=== PATIENT | female | born 1940 ===

== ENCOUNTER 2020-01-06 22:12 | Inpatient (IN) | payer MEDICARE, OTHER ==
[2020-01-06] MEDS ORDERED: Aspirin Chewable 81 MG TAB ONE (22:40)
[2020-01-06] MEDS ORDERED: Labetalol HCl 100 MG/20 ML VIAL ONE (22:49)
[2020-01-07] MEDS ORDERED: hydrALAZINE 20 MG/ML VIAL SLOW IVP PRN (00:16)
[2020-01-07] MEDS ORDERED: Acetaminophen 325 MG TAB PO PRN (00:16)
[2020-01-07] MEDS ORDERED: HumaLOG 300 UNITS/3 ML VIAL SC PRN ×2 (00:16)
[2020-01-07] MEDS ORDERED: Dextrose 5% in Water 1,000 ML IV PRN (00:16)
[2020-01-07] MEDS ORDERED: Dextrose 50% Abboject 50 ML SYRINGE SLOW IVP PRN (00:16)
--- NOTE | 2020-01-07 00:35 | HP ---
PRIMARY CARE PHYSICIAN: [id number]. CHIEF COMPLAINT: Right-sided tingling. HISTORY OF PRESENT ILLNESS: The patient is a very pleasant 79-year-old female visiting from [place], with past medical history significant for hypertension and diabetes. She presents to the ER today for right-sided tingling and weakness. She states that she was at her daughter's house making meatloaf when she notes that her right hand was tingling and felt a little weaker than her left hand. She also noticed some heaviness in her right leg when walking. She went and laid down and the symptoms resolved. However, when she got back up, they began again and also had some right-sided facial numbness. The ER doctor endorsed right-sided facial droop. The patient took an aspirin at home and EMS gave her an inch of nitro paste. Patient denies any chest pain, shortness of breath, change in bowel or bladder, contact with sick persons, any fever, or any changes in medications recently. Patient does state she has been compliant with her medications. Her blood sugars have been running in the low 100s. She does have a history of her blood pressure becoming high as high as 200 systolically that she has had to go and seek treatment for before. Patient does state they drove here from [place] approximately three weeks ago, but they did have frequent stops along the way due to her leg cramps. She was initially seen in the [facility], where they performed a brain CT and a CT [place] angio with contrast and EKG with lab work. She was then transferred to this ER in [place], where she was given labetalol 10 mg and aspirin 243 mg. She had already taken a baby aspirin at home. PAST MEDICAL HISTORY: Hypertension, diabetes type 2. PAST SURGICAL HISTORY: Cholecystectomy, appendectomy, hysterectomy, tubal ligation, removal of a benign lipoma of her neck. ALLERGIES: NO KNOWN DRUG ALLERGIES. MEDICATIONS: Patient states she takes lisinopril and clonidine at home. There is also another medication that she takes for blood pressure every other day, but she does not remember the name of it. The patient takes unknown insulin type of 30 units in the morning and 15 units at night. SOCIAL HISTORY: Patient lives at home in [place] with her . Denies alcohol, drug, or smoking history. FAMILY HISTORY: Noncontributory. REVIEW OF SYSTEMS: All other review of systems negative unless noted in the HPI. PHYSICAL EXAMINATION: VITAL SIGNS: 206/95 blood pressure, pulse 83, respiratory rate 18, temperature 98.7 orally, no pain, and O2 saturation 95% on room air. GENERAL: No acute distress. Alert, oriented to person, place, and time. HEENT: Head; atraumatic, normocephalic. Eyes, PERRLA. Extraocular muscles intact. No nystagmus. RESPIRATORY: Clear to auscultation bilaterally. No rhonchi, no wheezes, no rales. CARDIOVASCULAR: Regular rate and rhythm. No rubs, no gallops, no murmurs. ABDOMEN: Nontender. No distention. No guarding. No rigidity. EXTREMITIES: Upper and lower extremity strength 4/5 on the right side, upper and lower. Range of motion normal. NEUROLOGIC: Right-sided numbness to face, arm, and leg. Decreased strength in right side. Decreased application software developer in right side. Cerebellar intact. SKIN: Warm and dry and intact. Normal behavior. IMAGING DATA: EKG shows normal sinus rhythm, right bundle-branch block, 87 beats per minute. Brain CT showed no evidence of acute infarct. CT of [place] angio with contrast shows unremarkable. CTA of the head, no evidence of proximal MCA stenosis or occlusion. CTA of the neck showed atherosclerotic changes in both lobes without significant stenosis in either proximal ICA, tortuosity and kinking of both ICAs above the wall which does result in moderate stenosis bilaterally and a dominant nodule in the left lobe of thyroid, recommended to have elective thyroid ultrasound evaluation. White blood cells 12.4, hemoglobin 11.9, and hematocrit 38.5. Sodium 142, potassium 4.2, chloride 108, carbon dioxide 20, BUN 32, creatinine 1.29, GFR 40, and glucose 92. Troponin 0.019. IMPRESSION AND PLAN: Transient ischemic attack versus cerebrovascular accident. We will obtain a Neuro consult in the morning along with an MRI. Fasting lipid panel and hemoglobin A1c to be drawn in a.m. along with repeat BMP and CBC. We will monitor Accu-Cheks before meals and at bedtime and cover with a sliding scale insulin. We will restart the patient on her home medications for her diabetes. For her hypertension, we will slowly bring her blood pressure down and allow for permissive hypertension this evening. Patient states that she was told by her MD that her kidneys look wonderful so she appears to have an LEANDER with this admission, will gently hydrate with IVF and reassess levels in am. Patient was educated over this and made aware of the plan. VTE and GI prophylaxis to be in place. Patient wishes to be a full code. Her surrogate decision maker is her , Abner and also her daughter, Brandy. Patient has been discussed with Dr. Carlos. Job ID: [id number] MTDD
[2020-01-07 01:55] VITALS: BMI 31.6
[2020-01-07] MEDS: Sodium Chloride 0.9% 1,000 ML IV SCH (02:34)
[2020-01-07 05:08] LABS: #Basophils 0.1 thou/uL (0.0-0.2); #Eosinphils 0.3 thou/uL (0.0-0.7); #Lymphocytes 4.3 thou/uL (1.20-3.40); #Monocytes 0.9 thou/uL (0.11-0.59); #Neutrophils 5.3 thou/uL (1.40-6.50); %Basophils 0.9 % (0.0-1.0); %Eosinophils 2.9 % (0.0-10.0); %Lymphocytes 39.1 % (21.0-51.0); %Monocytes 8.6 % (0.0-10.0); %Neutrophils 48.4 % (42.0-75.0); Hemoglobin 10.8 g/dL (12.0-16.0); Mean Corpuscular HGB CONC 33.7 g/dL (32.0-36.0); Mean Corpuscular Hemoglobin 30.3 pg (27.0-31.0); Mean Corpuscular Volume 89.8 fL (78.0-98.0); Mean Platelet Volume 7.4 fL (7.4-10.4); Platelet Count 282 thou/uL (130-400); RBC Distribution Width 12.8 % (11.5-14.5); Red Blood Cell (RBC) Count 3.57 mill/uL (4.20-5.40); White Blood Cell (WBC) Count 10.9 thou/uL (4.8-10.8)
[2020-01-07 05:15] LABS: Hemoglobin A1c 5.5 % (4.0-6.0)
[2020-01-07 05:28] LABS: Anion Gap 14 mmol/L (10-20); BUN (Urea Nitrogen) 31 mg/dL (9.8-20.1); Calc. Creatinine Clearance 55 mL/min (70-130); Calcium 9.2 mg/dL (7.8-10.44); Carbon Dioxide 21 mmol/L (23-31); Cardiac Risk 7.3 (Less than 4.5); Chloride 109 mmol/L (98-107); Cholesterol 263 mg/dl (< 200 Desired); Estimated GFR-MDRD 48; Glucose 126 mg/dL (83-110); HDL Cholesterol 36 mg/dL (>60 Neg Risk); LDL Cholesterol, Calculated 165 mg/dL; Magnesium 1.5 mg/dL (1.6-2.6); Potassium 3.7 mmol/L (3.5-5.1); Sodium 140 mmol/L (136-145); Triglycerides 310 mg/dL (Less than 150)
[2020-01-07] MEDS ORDERED: FLU VACC QS2020-21(65YR UP)/PF 240 MCG/0.7 ML SYRINGE IM ONE (09:00)
[2020-01-07] MEDS ORDERED: Magnesium 2 GM/50 ML 2 GM in Premix Bag 1 BAG IVPB SCH (10:00)
[2020-01-07] MEDS ORDERED: Lorazepam 2 MG/ML VIAL SLOW IVP PRN (10:17)
[2020-01-07] MEDS: Enoxaparin Sodium 40 MG/0.4 ML SYRINGE SC SCH (10:25)
[2020-01-07] MEDS: Aspirin 81 mg Enteric Coated Tablet PO SCH (10:25)
[2020-01-07] MEDS ORDERED: Lorazepam 2 MG/ML VIAL SLOW IVP SCH (11:45)
--- NOTE | 2020-01-07 13:01 | MRI ---
EXAM: MRI Brain WO Con PROVIDED CLINICAL HISTORY: Generalized weakness. TIA. History on admission was right-sided weakness involving arm and leg. COMPARISON: CT head on 01/06/2020 FINDINGS: There is prominent motion artifact especially on the T2-weighted sequence, but this examination is di agnostic. There is a focal area of restricted diffusion measuring 9 mm in the left pelvis compatible with an ac atka infarction. No additional areas of restricted diffusion are seen to suggest additional areas of acute infarction. There are scattered punctate areas of increased FLAIR and T2-weighted signal intensity seen in the pe riventricular and subcortical white matter as well as in the left aspect of the anibal which are nonspecific but likely reflective of chronic small vessel ischemic changes. The septum pellucidum and third ventricle are in the midline. Mild cerebral and cerebellar volume los s is present. The ventricular system is normal in size, shape, and position for the degree of sulcal atrophy. The grayling lenses are absent. There is limited evaluation of the flow voids of the large intracranial vessels at the base of brain due to prominent motion. However, there is absence of the distal left vertebral artery flow-void, but the left vertebral artery was noted to terminate in PICA on the recent CT angiogram. IMPRESSION: Acute lacunar infarction left thalamus. Above findings discussed with [facility] nurse on the hospital floor on 01/07/2020 at 1258 hours.
[2020-01-07 13:27] LABS: SARS-CoV-2 MS2 Positive; SARS-CoV-2 N Gene Negative; SARS-CoV-2 S Gene Negative; SARS-CoV-2 by NAA Not Detected (NotDetected); SARS-CoV-2 orf1ab Negative
--- NOTE | 2020-01-07 13:49 | CON ---
NEUROLOGY CONSULTATION DATE OF CONSULTATION: 01/07/2020 REASON FOR CONSULTATION: Right-sided weakness and paresthesias, rule out stroke. HISTORY OF PRESENT ILLNESS: Ms. Jordana Gimenez is a 79-year-old female with medical history significant for hypertension and diabetes, who has been visiting from [place], presented to the emergency room yesterday with acute onset tingling and paresthesias of the right upper and lower extremity. Per patient, she felt her right hand was tingling and it felt heavy, and she was dragging her right leg while walking, where she went and laid down and her symptoms resolved; however, when she woke up, the symptoms began again and now with associated with right facial numbness. She was brought to the emergency room for further evaluation. The patient took aspirin at home. The patient denies nausea, vomiting, headache, chest pain, abdominal pain, slurred speech, or problems with swallowing associated with the episode. In the emergency room, head CT was done. She initially presented to [facility] where the head CT was done, and a CT of the [place], which was essentially negative. She was transferred to [facility] for further evaluation and given aspirin. REVIEW OF SYSTEMS: All 14 systems were reviewed and were negative except the pertinent positives and negatives mentioned in the HPI. PAST MEDICAL HISTORY: Hypertension and diabetes. PAST SURGICAL HISTORY: Cholecystectomy, appendectomy, hysterectomy, and tubal ligation. ALLERGIES: NO KNOWN DRUG ALLERGIES. MEDICATIONS: 1. Lisinopril. 2. Clonidine. 3. Insulin. SOCIAL HISTORY: The patient lives at [place] with her . Denies alcohol, smoking, or illegal drug use. PHYSICAL EXAMINATION: VITAL SIGNS: Blood pressure of 200/90, pulse 80, and respiratory rate 18. CVS: Regular rate and rhythm. CHEST: Clear. ABDOMEN: Soft. NECK: Supple. NEUROLOGIC: Mental status, the patient is alert and oriented to person, place, and time. Speech is clear. Recent and remote memory intact. Motor, muscle tone and bulk are normal. Strength; 3/5 in the right upper extremity, 4/5 in the right lower extremity, 5/5 in the left upper and lower extremities. Sensory, decreased sensation to light touch and pinprick in the right upper and lower extremities. Cranial nerves 2 through 12 intact, except 5. Decreased sensation to light touch in the V1, V2, V3 distribution. Cerebellar intact. Gait deferred due to the patient's safety reason. DATA REVIEWED: I reviewed the head CT scan which was negative for acute intracranial process. CTA of the [place] was unremarkable. CTA of the neck showed atherosclerotic changes without significant stenosis. ASSESSMENT AND PLAN: Ms. Jordana Gimenez was consulted for acute onset focal tingling and paresthesias and numbness and weakness on the right side of the body. Most likely stroke with involvement of the left basal ganglia. MRI of the brain to rule out acute intracranial process. 2D echo to evaluate for left ventricular ejection fraction. Telemetry to evaluate for arrhythmias. Neuro checks every 4 hours. Start aspirin and high-intensity statin for secondary stroke prevention. Check hemoglobin A1c, fasting lipid panel, and TSH. Continue home medications. Permissive control of blood pressure at this time. Strict control of blood glucose. PT/OT/Speech. DVT prophylaxis. Continue medical management per primary team. We will continue to follow. Thank you for the consult. Job ID: [id number] MTDD
[2020-01-07] MEDS: Labetalol HCl 100 MG/20 ML VIAL SLOW IVP PRN ×3 (16:23→22:05)
--- NOTE | 2020-01-07 16:54 | PDOC.BPN ---
- Brief Progress Note Encounter Date: 01/07/20 Pt was seen earlier this morning awaiting an MRI result. MRI has now been resulted and pt is noted to have an acute left thalamic CVA. Neuro has seen pt and rec med mgt and permissive HTN. Echo results are pending Exam: Stable. Right side weakness is noted. Labs/ Radiology: Noted. A/P Cont current mgt Await PT/ OT eval and recs. F/u with Echo results. Plan as oulined by Neuro. F/u with further Neuros recs.
[2020-01-07 17:11] LABS: #Basophils 0.1 thou/uL (0.0-0.2); #Eosinphils 0.3 thou/uL (0.0-0.7); #Lymphocytes 4.5 thou/uL (1.20-3.40); #Monocytes 0.8 thou/uL (0.11-0.59); #Neutrophils 3.9 thou/uL (1.40-6.50); %Basophils 1.4 % (0.0-1.0); %Eosinophils 3.1 % (0.0-10.0); %Lymphocytes 46.8 % (21.0-51.0); %Monocytes 8.2 % (0.0-10.0); %Neutrophils 40.6 % (42.0-75.0); Hemoglobin 11.1 g/dL (12.0-16.0); Mean Corpuscular HGB CONC 32.3 g/dL (32.0-36.0); Mean Corpuscular Hemoglobin 28.7 pg (27.0-31.0); Mean Platelet Volume 7.4 fL (7.4-10.4); Platelet Count 289 thou/uL (130-400); RBC Distribution Width 12.7 % (11.5-14.5); Red Blood Cell (RBC) Count 3.88 mill/uL (4.20-5.40); White Blood Cell (WBC) Count 9.6 thou/uL (4.8-10.8)
[2020-01-07] MEDS: Atorvastatin Calcium 40 MG TAB PO SCH (21:06)
[2020-01-07] MEDS ORDERED: cloNIDine 0.1 MG TAB PO SCH (23:15)
[2020-01-08] MEDS: Sodium Chloride 0.9% 1,000 ML IV SCH ×2 (00:29→12:53)
[2020-01-08] MEDS: Labetalol HCl 100 MG/20 ML VIAL SLOW IVP PRN ×4 (02:10→22:18)
[2020-01-08 05:07] LABS: #Basophils 0.1 thou/uL (0.0-0.2); #Eosinphils 0.4 thou/uL (0.0-0.7); #Lymphocytes 4.1 thou/uL (1.20-3.40); #Monocytes 0.8 thou/uL (0.11-0.59); #Neutrophils 4.5 thou/uL (1.40-6.50); %Basophils 1.2 % (0.0-1.0); %Lymphocytes 41.1 % (21.0-51.0); %Monocytes 8.3 % (0.0-10.0); %Neutrophils 45.4 % (42.0-75.0); Hemoglobin 10.5 g/dL (12.0-16.0); Mean Corpuscular HGB CONC 33.2 g/dL (32.0-36.0); Mean Corpuscular Hemoglobin 29.8 pg (27.0-31.0); Mean Corpuscular Volume 89.8 fL (78.0-98.0); Mean Platelet Volume 7.9 fL (7.4-10.4); Platelet Count 276 thou/uL (130-400); RBC Distribution Width 12.7 % (11.5-14.5); Red Blood Cell (RBC) Count 3.52 mill/uL (4.20-5.40); White Blood Cell (WBC) Count 9.9 thou/uL (4.8-10.8)
[2020-01-08 05:31] LABS: Anion Gap 14 mmol/L (10-20); BUN (Urea Nitrogen) 26 mg/dL (9.8-20.1); Calc. Creatinine Clearance 51 mL/min (70-130); Calcium 8.8 mg/dL (7.8-10.44); Carbon Dioxide 21 mmol/L (23-31); Chloride 108 mmol/L (98-107); Estimated GFR-MDRD 44; Glucose 126 mg/dL (83-110); Potassium 3.9 mmol/L (3.5-5.1); Sodium 139 mmol/L (136-145)
--- NOTE | 2020-01-08 08:35 | PDOC.HOSPP ---
- Subjective Encounter Date: 01/08/20 Encounter Time: 08:23 Subjective: alert, pleasant, cooperative - Objective Vital Signs & Weight: Vital Signs (12 hours) Temp Pulse Resp BP BP Pulse Ox 01/08/20 08:00 97.8 F 79 23 H 201/87 H 95 01/08/20 06:23 80 190/80 H 01/08/20 04:34 183/70 H 01/08/20 04:00 98.1 F 80 18 203/87 H 93 L 01/08/20 03:45 80 190/65 H 01/08/20 02:10 80 220/80 H 01/08/20 00:25 85 200/80 H 01/07/20 23:56 98.0 F 80 20 228/80 H 91 L 01/07/20 23:32 221/98 H 01/07/20 22:05 82 221/98 H Weight Weight 178 lb 9.6 oz I&O: 01/07/20 01/08/20 01/09/20 06:59 06:59 06:59 Intake Total 1276 Balance 1276 Result Diagrams: 01/08/20 04:22 01/08/20 04:22 Additional Labs: Accuchecks 01/08/20 01/07/20 01/07/20 05:39 21:14 17:06 POC Glucose 124 H 116 H 118 H Hospitalist ROS - Medication Medications: Active Medications Generic Name Dose Route Start Last Admin Trade Name Freq PRN Reason Stop Dose Admin Aspirin 81 mg 01/07/20 09:00 01/07/20 10:25 Aspirin 81 Mg Enteric Coated Tablet PO 81 mg DAILY TRICIA Administration Atorvastatin Calcium 40 mg 01/07/20 21:00 01/07/20 21:06 Atorvastatin Calcium 40 Mg Tab PO 40 mg HS TRICIA Administration Enoxaparin Sodium 40 mg 01/07/20 09:00 01/07/20 10:25 Enoxaparin Sodium 40 Mg/0.4 Ml Syringe SC 40 mg 0900 TRICIA Administration Sodium Chloride 1,000 mls @ 75 mls/hr 01/07/20 00:30 01/08/20 00:29 Normal Saline 0.9% IV 1,000 mls .[id number] TRICIA Administration Labetalol HCl 20 mg 01/07/20 22:08 01/08/20 06:23 Labetalol Hcl 100 Mg/20 Ml Vial SLOW IVP 20 mg Q1H PRN Administration SBP Greater Than 180 Pantoprazole Sodium 40 mg 01/07/20 09:00 01/07/20 10:25 Pantoprazole 40 Mg Tab PO 40 mg DAILY TRICIA Administration - Exam General Appearance: awake alert Neck: no JVD Heart: RRR, no murmur Respiratory: CTAB Gastrointestinal: soft, non-distended, normal bowel sounds Extremities: no edema Neurological: cranial nerve grossly intact Neurological - other findings: R spasyic hemipleegia Hosp A/P (1) CVA (cerebral vascular accident) Code(s): I63.9 - CEREBRAL INFARCTION, UNSPECIFIED Status: Acute Qualifiers: CVA mechanism: thrombosis Precerebral and cerebral artery: posterior cerebral artery Laterality of affected vessel: left Qualified Code(s): I63.332 - Cerebral infarction due to thrombosis of left posterior cerebral artery (2) Hemiplegia affecting dominant side Code(s): G81.90 - HEMIPLEGIA, UNSPECIFIED AFFECTING UNSPECIFIED SIDE Status: Acute (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
[2020-01-08] MEDS: Enoxaparin Sodium 40 MG/0.4 ML SYRINGE SC SCH (08:43)
[2020-01-08] MEDS: Aspirin 81 mg Enteric Coated Tablet PO SCH (08:43)
[2020-01-08] MEDS ORDERED: Non-Formulary Item 1 EACH (Omeprazole [Omeprazole] 40 MG Capsule.Dr) PO SCH (09:00)
[2020-01-08] MEDS ORDERED: Non-Formulary Item 1 EACH (Insulin Nph Hum/Reg Insulin Hm [Novolin 70-30 Flexpen] 100 UNI SC SCH ×2 (09:00→21:00)
[2020-01-08] MEDS ORDERED: Non-Formulary Item 1 EACH (Lisinopril [Lisinopril] 40 MG Tablet) PO SCH (09:00)
[2020-01-08] MEDS: Lisinopril 20 MG TAB PO SCH (10:32)
[2020-01-08] MEDS: glipiZIDE 5 MG TAB PO SCH ×2 (10:32→22:08)
[2020-01-08] MEDS: NPH, Human Insulin Isophane 300 UNIT/3 ML VIAL SC SCH (10:36)
[2020-01-08] MEDS: Primidone 50 MG TAB PO SCH (12:53)
--- NOTE | 2020-01-08 13:21 | PDOC.NEUPN ---
- Subjective Encounter Date: 01/08/20 Subjective: Patient denies any new complaints overnight. - Objective Vital Signs & Weight: Vital Signs (12 hours) Temp Pulse Resp BP BP Pulse Ox 01/08/20 12:00 97.9 F 76 13 200/87 H 93 L 01/08/20 10:32 208/78 H 01/08/20 08:00 97.8 F 79 23 H 201/87 H 95 01/08/20 06:23 80 190/80 H 01/08/20 04:34 183/70 H 01/08/20 04:00 98.1 F 80 18 203/87 H 93 L 01/08/20 03:45 80 190/65 H 01/08/20 02:10 80 220/80 H Weight Weight 178 lb 9.6 oz I&O: 01/07/20 01/08/20 01/09/20 06:59 06:59 06:59 Intake Total 1276 Balance 1276 Result Diagrams: 01/08/20 04:22 01/08/20 04:22 Additional Labs: Accuchecks 01/08/20 01/08/20 01/07/20 11:16 05:39 21:14 POC Glucose 156 H 124 H 116 H 01/07/20 17:06 POC Glucose 118 H Radiology Reviewed by me: Yes EKG Reviewed by me: Yes ROS - Review of Systems Constitutional: denies: fever, chills, sweats, weakness, malaise, other Eyes: denies: pain, vision change, conjunctivae inflammation, eyelid inflammation, redness, other ENT: denies: ear pain, ear discharge, nose pain, nose discharge, nose congestion, mouth pain, mouth swelling, throat pain, throat swelling, other Respiratory: denies: cough, dry, shortness of breath, hemoptysis, SOB with excertion, pleuritic pain, sputum, wheezing, other Gastrointestinal: denies: nausea, vomiting, abdominal pain, diarrhea, constipation, melena, hematochezia, other Genitourinary: denies: dysuria, frequency, incontinence, hematuria, retention, other Musculoskeletal: denies: neck pain, shoulder pain, arm pain, back pain, hand pain, leg pain, foot pain, other Skin: denies: rash, lesions, balaji, bruising, other Neurological: reports: weakness, numbness, incoordination. denies: change in speech, confusion, seizures, other - Medication Medications: Active Medications Generic Name Dose Route Start Last Admin Trade Name Freq PRN Reason Stop Dose Admin Aspirin 81 mg 01/07/20 09:00 01/08/20 08:43 Aspirin 81 Mg Enteric Coated Tablet PO 81 mg DAILY TRICIA Administration Atorvastatin Calcium 40 mg 01/07/20 21:00 01/07/20 21:06 Atorvastatin Calcium 40 Mg Tab PO 40 mg HS TRICIA Administration Enoxaparin Sodium 40 mg 01/07/20 09:00 01/08/20 08:43 Enoxaparin Sodium 40 Mg/0.4 Ml Syringe SC 40 mg 0900 TRICIA Administration Glipizide 5 mg 01/08/20 09:00 01/08/20 10:32 Glipizide 5 Mg Tab PO 5 mg BID TRICIA Administration Sodium Chloride 1,000 mls @ 75 mls/hr 01/07/20 00:30 01/08/20 12:53 Normal Saline 0.9% IV Not Given .[id number] TRICIA Insulin Human NPH 30 unit 01/08/20 09:00 01/08/20 10:36 Nph, Human Insulin Isophane 300 Unit/3 Ml Vial SC 30 unit QAM TRICIA Administration Labetalol HCl 20 mg 01/07/20 22:08 01/08/20 06:23 Labetalol Hcl 100 Mg/20 Ml Vial SLOW IVP 20 mg Q1H PRN Administration SBP Greater Than 180 Lisinopril 40 mg 01/08/20 09:00 01/08/20 10:32 Lisinopril 20 Mg Tab PO 40 mg DAILY TRICIA Administration Pantoprazole Sodium 40 mg 01/07/20 09:00 01/08/20 08:43 Pantoprazole 40 Mg Tab PO 40 mg DAILY TRICIA Administration Pantoprazole Sodium 40 mg 01/08/20 09:00 01/08/20 10:37 Pantoprazole 40 Mg Tab PO 40 mg DAILY TRICIA Administration Primidone 50 mg 01/08/20 09:00 01/08/20 12:53 Primidone 50 Mg Tab PO Not Given DAILY TRICIA - Exam General Appearance: awake alert Eye: PERRL ENT: normocephalic atraumatic, no oropharyngeal lesions Neck: supple Respiratory: CTAB Cardiovascular: RRR Gastrointestinal: soft Extremities: no cyanosis Skin: normal turgor Neurological - other findings: RIGHT HEMIPARESIS Musculoskeletal: no muscle wasting PSYCH: normal affect, normal behavior, A&O x 3 Results - Labs Result Diagrams: 01/08/20 04:22 01/08/20 04:22 Lab results: WBC 9.9 thou/uL (4.8-10.8) 01/08/20 04:22 Hgb 10.5 g/dL (12.0-16.0) L 01/08/20 04:22 Hct 31.6 % (36.0-47.0) L 01/08/20 04:22 MCV 89.8 fL (78.0-98.0) 01/08/20 04:22 Plt Count 276 thou/uL (130-400) 01/08/20 04:22 Neutrophils % 45.4 % (42.0-75.0) 01/08/20 04:22 Sodium 139 mmol/L (136-145) 01/08/20 04:22 Potassium 3.9 mmol/L (3.5-5.1) 01/08/20 04:22 Chloride 108 mmol/L (98-107) H 01/08/20 04:22 Carbon Dioxide 21 mmol/L (23-31) L 01/08/20 04:22 BUN 26 mg/dL (9.8-20.1) H 01/08/20 04:22 Creatinine 1.18 mg/dL (0.6-1.1) H 01/08/20 04:22 Glucose 126 mg/dL (83-110) H 01/08/20 04:22 Calcium 8.8 mg/dL (7.8-10.44) 01/08/20 04:22 - Radiology Interpretation MRI - head Status: image reviewed by me, report reviewed by me Additional Comment: Consistent with left thalamic acute infarction. 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 MRI brain consistent with acute infarction. MRI Brain reviewed and was positive with acute infarction of the left thalamus. 2 D Echo showed LVEF 55-60%. No thrombus or PFO. CTA Head and neck did not reveal hemodynamically significant stenosis. Aspirin and high intensity statin for secondary stroke prevention. Strict control of BP and BG. Continue home medications. PT/OT/Speech. Continue medical management per primary team.
[2020-01-08] MEDS ORDERED: cloNIDine 0.1 MG TAB PO SCH (14:00)
[2020-01-08] MEDS ORDERED: Carvedilol 6.25 MG TAB PO SCH (14:00)
[2020-01-08] MEDS: metFORMIN 500 MG TAB PO SCH (18:33)
[2020-01-08] MEDS ORDERED: NPH, Human Insulin Isophane 300 UNIT/3 ML VIAL SC SCH (21:00)
[2020-01-08] MEDS: Atorvastatin Calcium 40 MG TAB PO SCH (22:03)
[2020-01-09] MEDS: Sodium Chloride 0.9% 1,000 ML IV SCH (03:10)
[2020-01-09 07:16] VITALS: TEMP 98.2
[2020-01-09] MEDS ORDERED: metFORMIN 500 MG TAB PO SCH (08:00)
--- NOTE | 2020-01-09 08:06 | PDOC.HOSPP ---
- Subjective Encounter Date: 01/09/20 Encounter Time: 08:05 Subjective: much stronger on R - Objective Vital Signs & Weight: Vital Signs (12 hours) Temp Pulse Resp BP BP Pulse Ox 01/09/20 07:07 98.2 F 73 16 149/96 H 97 01/09/20 05:30 168/56 H 01/09/20 05:08 97.4 F L 68 19 226/99 H 95 01/09/20 01:27 97.9 F 69 18 165/97 H 96 01/08/20 22:18 77 208/78 H 01/08/20 20:47 97.9 F 68 13 216/104 H 95 01/08/20 20:30 95 Weight Weight 178 lb 9.6 oz I&O: 01/08/20 01/09/20 01/10/20 06:59 06:59 06:59 Intake Total 1276 2780 Balance 1276 2780 Result Diagrams: 01/08/20 04:22 01/08/20 04:22 Additional Labs: Accuchecks 01/09/20 01/08/20 01/08/20 06:09 22:12 17:16 POC Glucose 102 H 84 68 L 01/08/20 01/08/20 16:37 11:16 POC Glucose 43 L* 156 H Hospitalist ROS - Medication Medications: Active Medications Generic Name Dose Route Start Last Admin Trade Name Freq PRN Reason Stop Dose Admin Aspirin 81 mg 01/07/20 09:00 01/08/20 08:43 Aspirin 81 Mg Enteric Coated Tablet PO 81 mg DAILY TRICIA Administration Atorvastatin Calcium 40 mg 01/07/20 21:00 01/08/20 22:03 Atorvastatin Calcium 40 Mg Tab PO 40 mg HS TRICIA Administration Enoxaparin Sodium 40 mg 01/07/20 09:00 01/08/20 08:43 Enoxaparin Sodium 40 Mg/0.4 Ml Syringe SC 40 mg 0900 TRICIA Administration Glipizide 5 mg 01/08/20 09:00 01/08/20 22:08 Glipizide 5 Mg Tab PO 5 mg BID TRICIA Administration Sodium Chloride 1,000 mls @ 75 mls/hr 01/07/20 00:30 01/09/20 03:10 Normal Saline 0.9% IV 1,000 mls .[id number] TRICIA Administration Insulin Human NPH 30 unit 01/08/20 09:00 01/08/20 10:36 Nph, Human Insulin Isophane 300 Unit/3 Ml Vial SC 30 unit QAM TRICIA Administration Labetalol HCl 20 mg 01/07/20 22:08 01/08/20 22:18 Labetalol Hcl 100 Mg/20 Ml Vial SLOW IVP 20 mg Q1H PRN Administration SBP Greater Than 180 Lisinopril 40 mg 01/08/20 09:00 01/08/20 10:32 Lisinopril 20 Mg Tab PO 40 mg DAILY TRICIA Administration Metformin HCl 1,000 mg 01/08/20 17:00 01/08/20 18:33 Metformin 500 Mg Tab PO 1,000 mg BID-WM TRICIA Administration Pantoprazole Sodium 40 mg 01/07/20 09:00 01/08/20 08:43 Pantoprazole 40 Mg Tab PO 40 mg DAILY TRICIA Administration Pantoprazole Sodium 40 mg 01/08/20 09:00 01/08/20 10:37 Pantoprazole 40 Mg Tab PO 40 mg DAILY TRICIA Administration Primidone 50 mg 01/08/20 09:00 01/08/20 12:53 Primidone 50 Mg Tab PO Not Given DAILY TRICIA Sodium Chloride 10 ml 01/07/20 00:16 01/08/20 22:09 Flush - Normal Saline 10 Ml Syringe IVF 10 ml PRN PRN Administration Saline Flush - Exam General Appearance: awake alert Heart: RRR, no murmur Respiratory: CTAB Gastrointestinal: soft, normal bowel sounds Extremities: no edema Neurological: hemiplegia Neurological - other findings: R, spastic Hosp A/P (1) CVA (cerebral vascular accident) Code(s): I63.9 - CEREBRAL INFARCTION, UNSPECIFIED Status: Acute Qualifiers: CVA mechanism: thrombosis Precerebral and cerebral artery: posterior cerebral artery Laterality of affected vessel: left Qualified Code(s): I63.332 - Cerebral infarction due to thrombosis of left posterior cerebral artery (2) Hemiplegia affecting dominant side Code(s): G81.90 - HEMIPLEGIA, UNSPECIFIED AFFECTING UNSPECIFIED SIDE Status: Acute (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
[2020-01-09 08:51] LABS: Anion Gap 13 mmol/L (10-20); BUN (Urea Nitrogen) 19 mg/dL (9.8-20.1); Calc. Creatinine Clearance 55 mL/min (70-130); Calcium 9.4 mg/dL (7.8-10.44); Carbon Dioxide 22 mmol/L (23-31); Chloride 109 mmol/L (98-107); Estimated GFR-MDRD 48; Glucose 103 mg/dL (83-110); Potassium 4.3 mmol/L (3.5-5.1); Sodium 140 mmol/L (136-145)
[2020-01-09] MEDS ORDERED: cloNIDine 0.1 MG TAB PO SCH ×2 (09:00)
[2020-01-09] MEDS ORDERED: Carvedilol 6.25 MG TAB PO SCH ×2 (09:00)
[2020-01-09] MEDS: glipiZIDE 5 MG TAB PO SCH (09:33)
[2020-01-09] MEDS: NPH, Human Insulin Isophane 300 UNIT/3 ML VIAL SC SCH (09:34)
[2020-01-09] MEDS: Aspirin 81 mg Enteric Coated Tablet PO SCH (09:36)
[2020-01-09] MEDS: Primidone 50 MG TAB PO SCH (09:37)
[2020-01-09] MEDS: Enoxaparin Sodium 40 MG/0.4 ML SYRINGE SC SCH (09:37)
[2020-01-09] MEDS: Lisinopril 20 MG TAB PO SCH (09:40)
[2020-01-09] MEDS: metFORMIN 500 MG TAB PO SCH (09:47)
[2020-01-09 11:53] VITALS: BP 165/88
--- NOTE | 2020-01-09 12:27 | PDOC.NEUPN ---
- Subjective Encounter Date: 01/16/20 Subjective: Patient feels better today. She is improved and blood pressure is also much under control. - Objective Vital Signs & Weight: Vital Signs (12 hours) Temp Pulse Resp BP BP Pulse Ox 01/09/20 11:51 98.2 F 70 17 165/88 H 93 L 01/09/20 09:40 210/82 H 01/09/20 07:07 98.2 F 73 16 149/96 H 97 01/09/20 05:30 168/56 H 01/09/20 05:08 97.4 F L 68 19 226/99 H 95 01/09/20 01:27 97.9 F 69 18 165/97 H 96 Weight Weight 178 lb 9.6 oz I&O: 01/08/20 01/09/20 01/10/20 06:59 06:59 06:59 Intake Total 1276 2780 Balance 1276 2780 Result Diagrams: 01/08/20 04:22 01/09/20 08:14 Additional Labs: Accuchecks 01/09/20 01/09/20 01/08/20 11:02 06:09 22:12 POC Glucose 137 H 102 H 84 01/08/20 01/08/20 17:16 16:37 POC Glucose 68 L 43 L* Radiology Reviewed by me: Yes EKG Reviewed by me: Yes ROS - Review of Systems Constitutional: denies: fever, chills, sweats, weakness, malaise, other Eyes: denies: pain, vision change, conjunctivae inflammation, eyelid inflam mation, redness, other ENT: denies: ear pain, ear discharge, nose pain, nose discharge, nose congestion, mouth pain, mouth swelling, throat pain, throat swelling, other Respiratory: denies: cough, dry, shortness of breath, hemoptysis, SOB with excertion, pleuritic pain, sputum, wheezing, other Gastrointestinal: denies: nausea, vomiting, abdominal pain, diarrhea, constipation, melena, hematochezia, other Genitourinary: denies: dysuria, frequency, incontinence, hematuria, retention, other Musculoskeletal: denies: neck pain, shoulder pain, arm pain, back pain, hand pain, leg pain, foot pain, other Neurological: reports: weakness, numbness. denies: incoordination, change in speech, confusion, seizures, other - Medication Medications: Active Medications Generic Name Dose Route Start Last Admin Trade Name Stevensonq PRN Reason Stop Dose Admin Aspirin 81 mg 01/07/20 09:00 01/09/20 09:36 Aspirin 81 Mg Enteric Coated Tablet PO 81 mg DAILY TRICIA Administration Atorvastatin Calcium 40 mg 01/07/20 21:00 01/08/20 22:03 Atorvastatin Calcium 40 Mg Tab PO 40 mg HS TRICIA Administration Carvedilol 6.25 mg 01/09/20 09:00 01/09/20 09:40 Carvedilol 6.25 Mg Tab PO 6.25 mg Q2DAYS TRICIA Administration Clonidine 0.1 mg 01/09/20 09:00 01/09/20 09:40 Clonidine 0.1 Mg Tab PO 0.1 mg DAILY TRICIA Administration Enoxaparin Sodium 40 mg 01/07/20 09:00 01/09/20 09:37 Enoxaparin Sodium 40 Mg/0.4 Ml Syringe SC 40 mg 0900 TRICIA Administration Glipizide 5 mg 01/08/20 09:00 01/09/20 09:33 Glipizide 5 Mg Tab PO Not Given BID [facility] Sodium Chloride 1,000 mls @ 75 mls/hr 01/07/20 00:30 01/09/20 03:10 Normal Saline 0.9% IV 1,000 mls .[id number] TRICIA Administration Insulin Human NPH 30 unit 01/08/20 09:00 01/09/20 09:34 Nph, Human Insulin Isophane 300 Unit/3 Ml Vial SC Not Given QAM TRICIA Labetalol HCl 20 mg 01/07/20 22:08 01/08/20 22:18 Labetalol Hcl 100 Mg/20 Ml Vial SLOW IVP 20 mg Q1H PRN Administration SBP Greater Than 180 Lisinopril 40 mg 01/08/20 09:00 01/09/20 09:40 Lisinopril 20 Mg Tab PO 40 mg DAILY TRICIA Administration Metformin HCl 1,000 mg 01/09/20 08:00 01/09/20 09:44 Metformin 500 Mg Tab PO 1,000 mg BID-WM TRICIA Administration Pantoprazole Sodium 40 mg 01/08/20 09:00 01/09/20 09:36 Pantoprazole 40 Mg Tab PO 40 mg DAILY TRICIA Administration Primidone 50 mg 01/08/20 09:00 01/09/20 09:37 Primidone 50 Mg Tab PO Not Given DAILY TRICIA Sodium Chloride 10 ml 01/07/20 00:16 01/08/20 22:09 Flush - Normal Saline 10 Ml Syringe IVF 10 ml PRN PRN Administration Saline Flush - Exam General Appearance: awake alert Eye: PERRL ENT: normocephalic atraumatic Neck: supple Respiratory: CTAB Cardiovascular: RRR Gastrointestinal: soft Extremities: no cyanosis Skin: normal turgor Neurological: no new deficit Musculoskeletal: no muscle wasting PSYCH: normal affect, normal behavior, A&O x 3 Results - Labs Result Diagrams: 01/08/20 04:22 01/09/20 08:14 Lab results: WBC 9.9 thou/uL (4.8-10.8) 01/08/20 04:22 Hgb 10.5 g/dL (12.0-16.0) L 01/08/20 04:22 Hct 31.6 % (36.0-47.0) L 01/08/20 04:22 MCV 89.8 fL (78.0-98.0) 01/08/20 04:22 Plt Count 276 thou/uL (130-400) 01/08/20 04:22 Neutrophils % 45.4 % (42.0-75.0) 01/08/20 04:22 Sodium 140 mmol/L (136-145) 01/09/20 08:14 Potassium 4.3 mmol/L (3.5-5.1) 01/09/20 08:14 Chloride 109 mmol/L (98-107) H 01/09/20 08:14 Carbon Dioxide 22 mmol/L (23-31) L 01/09/20 08:14 BUN 19 mg/dL (9.8-20.1) 01/09/20 08:14 Creatinine 1.10 mg/dL (0.6-1.1) 01/09/20 08:14 Glucose 103 mg/dL (83-110) 01/09/20 08:14 Calcium 9.4 mg/dL (7.8-10.44) 01/09/20 08:14 - EKG Interpretation EKG: Normal sinus rhythm - Radiology Interpretation MRI - head Status: image reviewed by me, report reviewed by me Additional Comment: MRI brain reviewed and was consistent with acute infarction in the left thalamus PN A/P (1) CVA (cerebral vascular accident) Code(s): I63.9 - CEREBRAL INFARCTION, UNSPECIFIED Status: Acute Qualifiers: CVA mechanism: thrombosis Precerebral and cerebral artery: posterior cerebral artery Laterality of affected vessel: left Qualified Code(s): I63.332 - Cerebral infarction due to thrombosis of left posterior cerebral artery (2) Hemiplegia affecting dominant side Code(s): G81.90 - HEMIPLEGIA, UNSPECIFIED AFFECTING UNSPECIFIED SIDE Status: Acute (3) DM type 2 causing CKD stage 3 Code(s): E11.22 - TYPE 2 DIABETES MELLITUS W DIABETIC CHRONIC KIDNEY DISEASE; N18.30 - CHRONIC KIDNEY DISEASE, STAGE 3 UNSPECIFIED Status: Chronic Qualifiers: Diabetes mellitus halfway insulin use: with long term care social worker use (4) HTN (hypertension) Code(s): I10 - ESSENTIAL (PRIMARY) HYPERTENSION Status: Chronic Qualifiers: Hypertension type: essential hypertension Qualified Code(s): I10 - Essential (primary) hypertension - Plan Daily Plan: PT/OT, speech therapy Consults: Other (Rehab) 79 yesar old presented with acute onset focal weakness and paraesthesias on the right. MRI brain consistent with acute infarction. Patient feels much better today and there is improvement in right hemiparesis. She has better control of blood pressure in the last 24 hours. Rehab consultation Case management on board regarding discharge planning. Aspirin and high intensity statin for secondary stroke prevention. Strict control of BP and BG. Continue home medications. PT/OT/Speech. Continue medical management per primary team. Plan discussed in detail with the patient and during MDR rounds Results reviewed: MRI Brain reviewed and was positive with acute infarction of the left thalamus. 2 D Echo showed LVEF 55-60%. No thrombus or PFO. CTA Head and neck did not reveal hemodynamically significant stenosis.
[2020-01-09] MEDS ORDERED: NPH, Human Insulin Isophane 300 UNIT/3 ML VIAL SC SCH (21:00)
--- NOTE | 2020-01-10 11:05 | DIS ---
DATE OF ADMISSION: 01/06/2020 DATE OF DISCHARGE: 01/09/2020 PRIMARY CARE PROVIDER: Out of town. She is discharged home with Home Health and physical therapy. 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 Dyslipidemia, mixed. DISCHARGE MEDICATIONS: 1. Aspirin 325 mg a day. 2. Atorvastatin 40 mg a day. 3. Omeprazole 40 mg a day. 4. Glipizide 5 mg twice a day. 5. Lisinopril 40 mg a day. 6. Metformin 1,000 mg twice a day. 7. Coreg 6.25 mg p.o. q.2 days. 8. Clonidine 0.1 mg a day. Medications held: Humulin N. CODE STATUS: Full. DIET: Diabetic. PENDING AT TIME OF DISCHARGE: Nothing. ALLERGIES: NONE. HOSPITAL COURSE: The patient admitted to the [facility] to the Hospitalist Service. She presented with right-sided tingling. Her symptoms did also included a marked weakness and discoordination of the entire right side. She did not have any cranial nerve deficits. She was placed in the hospital. An MRI was done, which revealed acute lacunar infarct in the left thalamus. The MRI, evidence of a decreased flow in the left vertebral artery. She was seen in consultation by Dr. Pushpa Diehl, Neurology. She had an echocardiogram, LVEF 50% to 55%. No prominent valvular abnormalities. Her admitting laboratory; basic metabolic profile showed a blood sugar of 126, sodium 140, potassium 3.7, chloride 109, CO2 of 21, BUN 31, creatinine 1.1. Cholesterol is elevated at 263, triglycerides elevated at 310. Blood sugars were monitored during her hospital stay and stayed in the range of below 150 except for one. Her renal function showed chronic kidney disease stage 3. With physical therapy, she is improved at this point to where she is ready for discharge home with Home Health and Home Health PT. She is being discharged to follow up with her PCP in 7 days to follow up with added Home Health PT as an outpatient. Prognosis at this time is good. 35 minutes spent preparing this discharge. Job ID: [id number] MTDD
== END 2020-01-09 14:48 | disposition home or self-care (01) | DRG 65 ==
LOC: ERS 22:12 → 2SE 23:09
PROVIDERS: ADMIT Internal Medicine; ATTEND Internal Medicine
DX: I63.332 Cerebral infarction due to thrombosis of left posterior cerebral artery (principal); G81.91 Hemiplegia, unspecified affecting right dominant side; E78.5 Hyperlipidemia, unspecified; Z20.828 Contact with and (suspected) exposure to other viral communicable diseases; R29.702 NIHSS score 2; E11.22 Type 2 diabetes mellitus with diabetic chronic kidney disease; I12.9 Hypertensive chronic kidney disease with stage 1 through stage 4 chronic kidney disease, or unspecified chronic kidney disease; N18.30 Chronic kidney disease, stage 3 unspecified; Z90.49 Acquired absence of other specified parts of digestive tract; Z90.710 Acquired absence of both cervix and uterus; Z98.51 Tubal ligation status; Z79.4 Long term (current) use of insulin
CPT/HCPCS: 36415; 36416; 70551; 80048; 80061; 83036; 83735; 85025; 87635; 93306; 96374; J1650; J1815; J2060; J3475; U0003